=== PATIENT | female | born 1965 | race American Indian/Alaskan Native ===

== ENCOUNTER 2021-02-06 10:11 | Outpatient (CLI) | payer BC ==
--- NOTE | 2021-02-12 08:24 | Mammography Report ---
DEXA BONE DENSITY SCAN INDICATION: ASYMPTOMATIC POSTMENOPAUSAL STATUS COMPARISON: None available. LUMBAR SPINE (L1-L4): Bone mineral density (BMD) is 1.378 g/cm2. T-score is 2.1 (standard deviations of Young Adult mean). Z-score is 3.5 (standard deviations of Age Matched mean). RIGHT FEMORAL NECK: Bone mineral density (BMD) is 1.106 g/cm2. T-score is 1.1 (standard deviations of Young Adult mean). Z-score is 2.0 (standard deviations of Age Matched mean). IMPRESSION: 1. WHO Classification: Normal bone density. Fracture Risk: Not Increased. Signer Name: Matt Garrett MD Signed: 02/12/2021 8:20 AM Workstation Name: [id number]
== END 2021-02-06 10:12 | disposition home or self-care (01) ==
LOC: SPVWC 10:11
PROVIDERS: ATTEND Internal Medicine
DX: Z13.820 Encounter for screening for osteoporosis (principal); Z78.0 Asymptomatic menopausal state
CPT/HCPCS: 77080